=== PATIENT | female | born 1965 | race Caucasian/White ===

== ENCOUNTER 2022-05-10 12:13 | Emergency (ER) | payer MEDICAID ==
[~2022-05-10] VITALS: Ht 162.6 cm; Wt 68.9 kg
[2022-05-10 12:25] VITALS: BP_SYST 124
--- NOTE | 2022-05-10 12:25 | NUR ---
Patient triaged and placed in waiting room. VSS and patient appears in no acute distress at this time. Accompanied by SELF, awaiting available bed, and MD notified of need for MSE.
--- NOTE | 2022-05-10 14:00 | NUR ---
ER DR. RIDER EXAMINING PT
[2022-05-10] MEDS ORDERED: TRAM50TA2 PO (14:24)
[2022-05-10] MEDS ORDERED: KETOROLAC TROMETHAMINE 60 MG/2 ML VIAL IM ONE (14:30)
--- NOTE | 2022-05-10 14:35 | NUR ---
Patient given written and verbal discharge instructions and verbalizes understanding. ER MD discussed with patient the results and treatment provided. Patient in stable condition. ID arm band removed. Rx of TRAMADOL given. Patient educated on pain management and to follow up with PMD. Pain Scale 0/10. Opportunity for questions provided and answered. Medication side effect fact sheet provided.
[2022-05-10 14:36] VITALS: BP_SYST 124
== END 2022-05-10 14:36 | disposition home or self-care (01) ==
LOC: SED 12:13
DX: M54.50 Low back pain, unspecified (principal); G89.29 Other chronic pain; Z79.899 Other long term (current) drug therapy
CPT/HCPCS: 99283; 96372; J1885